=== PATIENT | female | born 1965 | race Two or more races ===

== ENCOUNTER 2018-03-06 07:42 | Outpatient (CLI) | payer OTHER | END 2018-03-06 07:44 | disposition home or self-care (01) | LOC: SONOGRAMA 07:42 | DX: E04.1 Nontoxic single thyroid nodule (principal) ==

== ENCOUNTER 2018-09-09 10:12 | Emergency (ER) | payer OTHER ==
[~2018-09-09] VITALS: Ht 162.6 cm; Wt 68.0 kg
[2018-09-09] MEDS ORDERED: SYNTHROID125 MCG (10:38)
[2018-09-09] MEDS ORDERED: TOPROL XL100 M1 (10:38)
[2018-09-09] MEDS ORDERED: SELENIUM200 MC2 (10:38)
[2018-09-09] MEDS ORDERED: COZAAR100 MG (10:38)
== END 2018-09-09 14:11 | disposition home or self-care (01) ==
LOC: ER 10:12
DX: M62.838 Other muscle spasm (principal); H53.8 Other visual disturbances; I10 Essential (primary) hypertension